=== PATIENT | male | born 1990 | race African-American/Black ===

== ENCOUNTER 2019-07-03 07:11 | Emergency (ER) | payer OTHER ==
[~2019-07-03] VITALS: Ht 182.9 cm; Wt 74.8 kg
[~2019-07-03 07:11] MED LIST: NOHOMEMEDICATIONS
[2019-07-03] MEDS ORDERED: MOBIC15 MG PO (08:46)
[2019-07-03 08:53] VITALS: BP 129/90
--- NOTE | 2019-07-04 16:14 | EKG ---
[place] [address] [facility] [place] [address] ELECTROCARDIOGRAM REPORT Name: DEREKBOB Room #: DEP LYDIA Moya#: [id number] Admission: 07/03/19 Attend Phys: Discharge: 07/03/19 Date of : 89 Report #: [id number] THIS REPORT FOR: //name// [facility] ED Test Date: 2019-07-03 Test Time: 07:31:29 Pat Name: BOB REED Department: Room: Gender: Clay [employer]ter: SAAD : 1990 Requested By: Susanne Sim Order Number: [id number] MD: Familia Johnson Measurements Intervals [place] Rate: 88 P: 86 TN: 146 QRS: 77 QRSD: 92 T: 27 QT: 367 QTc: 444 Interpretive Statements Sinus rhythm Ventricular premature complex Left atrial enlargement Probable anteroseptal infarct, old Compared to ECG 10/04/2013 00:44:50 Ventricular premature complex(es) now present Atrial abnormality now present Anteroseptal Q waves now noted Electronically Signed On 07-04-2019 16:13:28 [employer] by Familia Johnson [email or web address] <ELECTRONICALLY SIGNED> By: Familia Johnson MD 07/04/19 1613 0731 Familia Johnson MD /EPI
== END 2019-07-03 08:53 | disposition home or self-care (01) ==
LOC: ER 07:11
DX: R06.02 Shortness of breath (principal); F17.210 Nicotine dependence, cigarettes, uncomplicated